=== PATIENT | male | born 1950 | race Caucasian/White ===

== ENCOUNTER 2018-03-13 06:42 | Outpatient (CLI) | payer OTHER | END 2018-03-13 06:54 | disposition home or self-care (01) | LOC: LAB 06:42 | DX: R33.8 Other retention of urine (principal); R97.20 Elevated prostate specific antigen [PSA] ==

== ENCOUNTER 2018-03-16 06:47 | Outpatient (CLI) | payer OTHER | END 2018-03-16 06:53 | disposition home or self-care (01) | LOC: LAB 06:47 | DX: N17.8 Other acute kidney failure (principal); E11.9 Type 2 diabetes mellitus without complications; I10 Essential (primary) hypertension; R33.8 Other retention of urine ==

== ENCOUNTER 2018-03-19 07:23 | Outpatient (CLI) | payer OTHER | END 2018-03-19 07:38 | disposition home or self-care (01) | LOC: LAB 07:23 | DX: N17.8 Other acute kidney failure (principal) ==

== ENCOUNTER 2018-03-19 08:31 | Outpatient (CLI) | payer OTHER | END 2018-03-19 08:32 | disposition home or self-care (01) | LOC: SONOGRAMA 08:31 | DX: R97.20 Elevated prostate specific antigen [PSA] (principal); R33.8 Other retention of urine ==

== ENCOUNTER → 2018-03-24 | Outpatient (CLI) | payer OTHER | END | disposition home or self-care (01) | LOC: LAB 12:01 | DX: N30.00 Acute cystitis without hematuria (principal); R82.79 Other abnormal findings on microbiological examination of urine ==

== ENCOUNTER → 2018-03-26 06:27 | Outpatient (CLI) | payer OTHER | END | disposition home or self-care (01) | LOC: LAB 06:27 | DX: N17.8 Other acute kidney failure (principal) ==

== ENCOUNTER 2018-03-27 07:41 | Outpatient (CLI) | payer OTHER | END 2018-03-27 07:52 | disposition home or self-care (01) | LOC: SONOGRAMA 07:41 | DX: R97.20 Elevated prostate specific antigen [PSA] (principal) ==

== ENCOUNTER 2018-04-10 11:34 | Outpatient (CLI) | payer OTHER | END 2018-04-10 11:35 | disposition home or self-care (01) | LOC: RAD 11:34 | DX: I10 Essential (primary) hypertension (principal); E11.9 Type 2 diabetes mellitus without complications ==

== ENCOUNTER → 2018-04-11 07:45 | Outpatient (CLI) | payer OTHER | END | disposition home or self-care (01) | LOC: LAB 07:45 | DX: R33.8 Other retention of urine (principal); N17.8 Other acute kidney failure ==

== ENCOUNTER 2018-04-29 07:00 | Day surgery (SDC) | payer OTHER ==
[~2018-04-29] VITALS: Ht 177.8 cm; Wt 63.5 kg
[~2018-04-29 07:00] MED LIST: GLUCOTROL10 MG PO; HYDRALAZINE HCL25 MG PO; NORVASC10 MG PO
== END 2018-04-30 08:00 | disposition home or self-care (01) ==
LOC: CIR.AMB 07:00 → O/R 14:01 → SURH 14:01 → CIR.AMB 04-30 08:00 → EDSTATUS 04-30 11:15 → SURH 04-30 11:36 → CIR.AMB 04-30 15:39 → SURH 04-30 15:39 → EDSTATUS 04-30 15:39
DX: N40.1 Benign prostatic hyperplasia with lower urinary tract symptoms (principal); R33.8 Other retention of urine; N47.1 Phimosis

== ENCOUNTER → 2018-05-10 07:18 | Outpatient (CLI) | payer OTHER | END | disposition home or self-care (01) | LOC: LAB 05-07 06:16 | DX: D62 Acute posthemorrhagic anemia (principal) ==

== ENCOUNTER 2018-05-14 06:13 | Outpatient (CLI) | payer OTHER | END 2018-05-14 06:45 | disposition home or self-care (01) | LOC: LAB 06:13 | DX: N13.2 Hydronephrosis with renal and ureteral calculous obstruction (principal); N18.9 Chronic kidney disease, unspecified ==

== ENCOUNTER 2019-01-14 06:41 | Outpatient (CLI) | payer OTHER | END 2019-01-14 07:07 | disposition home or self-care (01) | LOC: LAB 06:41 | DX: N18.9 Chronic kidney disease, unspecified (principal) ==

== ENCOUNTER 2019-01-14 07:39 | Outpatient (CLI) | payer OTHER | END 2019-01-14 17:00 | disposition home or self-care (01) | LOC: SONOGRAMA 07:39 | DX: N13.2 Hydronephrosis with renal and ureteral calculous obstruction (principal); R97.20 Elevated prostate specific antigen [PSA] ==